=== PATIENT | female | born 1945 | race Caucasian/White ===

== ENCOUNTER → 2024-03-18 13:14 | Outpatient (CLI) | payer OTHER, SELFPAY | LOC: WC 13:42 | PROVIDERS: PCP Registered Nurse; Referring Provider Registered Nurse; Visit Provider Surgery | DX: T81.89XA Other complications of procedures, not elsewhere classified, initial encounter (principal); S91.002A Unspecified open wound, left ankle, initial encounter; L98.8 Other specified disorders of the skin and subcutaneous tissue; R60.0 Localized edema | CPT/HCPCS: 11042; 87070; 87075; 87147; 87205; 99203; 99213 ==

== ENCOUNTER → 2024-03-26 14:12 | Outpatient (CLI) | payer OTHER, SELFPAY | LOC: WC 14:12 | PROVIDERS: PCP Registered Nurse; Referring Provider Registered Nurse; Visit Provider Surgery | DX: T81.89XA Other complications of procedures, not elsewhere classified, initial encounter (principal); S91.002A Unspecified open wound, left ankle, initial encounter; R60.0 Localized edema | CPT/HCPCS: 11042 ==

== ENCOUNTER → 2024-04-02 13:11 | Outpatient (CLI) | payer OTHER, SELFPAY | PROVIDERS: PCP Registered Nurse; Referring Provider Registered Nurse; Visit Provider Surgery | DX: T81.89XA Other complications of procedures, not elsewhere classified, initial encounter (principal); S91.002A Unspecified open wound, left ankle, initial encounter; L98.8 Other specified disorders of the skin and subcutaneous tissue; R60.0 Localized edema | CPT/HCPCS: 11042 ==

== ENCOUNTER → 2024-04-16 12:59 | Outpatient (CLI) | payer OTHER, SELFPAY | PROVIDERS: PCP Registered Nurse; Referring Provider Registered Nurse; Visit Provider Surgery | DX: T81.89XA Other complications of procedures, not elsewhere classified, initial encounter (principal); S91.002A Unspecified open wound, left ankle, initial encounter; L98.8 Other specified disorders of the skin and subcutaneous tissue; R60.0 Localized edema | CPT/HCPCS: 11042 ==

== ENCOUNTER → 2024-04-23 14:46 | Outpatient (CLI) | payer OTHER, SELFPAY | LOC: WC 14:47 | PROVIDERS: PCP Registered Nurse; Referring Provider Registered Nurse; Visit Provider Surgery | DX: T81.89XA Other complications of procedures, not elsewhere classified, initial encounter (principal); S91.002A Unspecified open wound, left ankle, initial encounter; L98.8 Other specified disorders of the skin and subcutaneous tissue; R60.0 Localized edema | CPT/HCPCS: 11042 ==

== ENCOUNTER → 2024-04-30 15:01 | Outpatient (CLI) | payer OTHER, SELFPAY | LOC: WC 15:01 | PROVIDERS: PCP Registered Nurse; Referring Provider Registered Nurse; Visit Provider Surgery | DX: T81.31XA Disruption of external operation (surgical) wound, not elsewhere classified, initial encounter (principal); S91.001A Unspecified open wound, right ankle, initial encounter; L98.8 Other specified disorders of the skin and subcutaneous tissue; R60.0 Localized edema; R23.4 Changes in skin texture | CPT/HCPCS: 11042 ==

== ENCOUNTER → 2024-05-07 13:09 | Outpatient (CLI) | payer OTHER, SELFPAY | PROVIDERS: PCP Registered Nurse; Referring Provider Registered Nurse; Visit Provider Surgery | DX: T81.31XA Disruption of external operation (surgical) wound, not elsewhere classified, initial encounter (principal); S91.002A Unspecified open wound, left ankle, initial encounter; L98.8 Other specified disorders of the skin and subcutaneous tissue; R60.0 Localized edema | CPT/HCPCS: 97602; 99213 ==

== ENCOUNTER → 2024-05-15 12:51 | Outpatient (CLI) | payer OTHER, SELFPAY | LOC: WC 13:04 | PROVIDERS: PCP Registered Nurse; Referring Provider Podiatrist; Visit Provider Surgery | DX: S91.002D Unspecified open wound, left ankle, subsequent encounter (principal); T81.31XD Disruption of external operation (surgical) wound, not elsewhere classified, subsequent encounter | CPT/HCPCS: 99213 ==